=== PATIENT | female | born 1980 | race Caucasian/White ===

== ENCOUNTER 2021-12-29 12:43 | Outpatient (CLI) | payer MEDICAID, SELFPAY ==
--- NOTE | 2021-12-29 12:57 | MR_ITS ---
WS: [id number] MRI LUMBAR SPINE NONCONTRAST TECHNIQUE: Sagittal T1, T2 and STIR imaging. Axial T1 and T2 imaging. CLINICAL INFORMATION: RADICULOPATHY COMPARISON: None. FINDINGS: Counting performed from the craniocervical junction. S1 is partially lumbarized. Thoracolumbar S-shaped scoliosis. Thoracic scoliosis convex RIGHT and lumbar curve convex LEFT. L1-L2: Mild annular bulging. Slight narrowing of the RIGHT subarticular recess. Spinal canal and fora men are patent. Mild facet arthropathy. L2-L3: Mild disc bulging with osteophytic ridging. Slight narrowing of the RIGHT subarticular recess. Spinal canal and foramen are patent. Mild facet arthropathy. L3-L4: Mild annular bulging. Moderate facet arthropathy. Mild RIGHT and no significant LEFT foraminal narrowing. L4-L5: Slight anterolisthesis. Mild annular bulging. Mild facet arthropathy. Mild to moderate bilater al foraminal narrowing. Mild facet arthropathy. Spinal canal is patent. L5-S1: Grade 1 anterolisthesis L5 on S1. Mild central canal stenosis with impingement on the traversi ng S1 nerve roots bilaterally. Moderate facet arthropathy. Impingement on the traversing LEFT greater than RIGHT S1 nerve roots. Moderate LEFT and mild RIGHT foraminal narrowing. Mild facet arthropathy. S1 is partially lumbarized. Rudimentary disc space at S1-S2 with moderate LEFT foraminal narrowing. Visualized pelvic bony structures: Normal. Paravertebral soft tissues: Normal. MR/MR lumbar spine wo con* [id number] IMPRESSION: 1. S-shaped thoracolumbar scoliosis. No acute compression. Grade 1 anterolisth esis L5 on S1. 2. Mild central canal stenosis L5-S1 with impingement on the traversing LEFT g reater than RIGHT S1 nerve roots. 3. Moderate LEFT L5-S1 foraminal narrowing impinges the exiting LEFT L5 nerve root. Mild RIGHT L3-L4 foraminal narrowing. 4. Mild to moderate bilateral L4-L5 foraminal narrowing. 5. Moderate facet arthropathy L3-L5. 6. Rudimentary disc space at S1-S2 with moderate RIGHT foraminal narrowing. S1 is partially lumbarized.
== END 2021-12-29 12:44 | disposition home or self-care (01) ==
LOC: RAD 12:44
PROVIDERS: Visit Provider Anesthesiology Pain Medicine
DX: M54.16 Radiculopathy, lumbar region (principal); M48.07 Spinal stenosis, lumbosacral region
CPT/HCPCS: 72148

== ENCOUNTER → 2022-03-07 12:43 | Outpatient (BNVA) | payer MEDICAID, SELFPAY | PROVIDERS: Visit Provider Internal Medicine Cardiovascular Disease | DX: I48.91 Unspecified atrial fibrillation (principal); J44.9 Chronic obstructive pulmonary disease, unspecified; K21.9 Gastro-esophageal reflux disease without esophagitis; F41.9 Anxiety disorder, unspecified; F17.210 Nicotine dependence, cigarettes, uncomplicated; I45.10 Unspecified right bundle-branch block | CPT/HCPCS: 99204 ==

== ENCOUNTER 2022-04-28 09:09 | Outpatient (CLI) | payer MEDICAID, SELFPAY ==
--- NOTE | 2022-04-28 09:25 | MR_ITS ---
WS: [id number] MRI LEFT KNEE NONCONTRAST TECHNIQUE: Axial PD, coronal PD fat sat, coronal PD, sagittal PD, and sagittal PD fat-sat images obta ined. CLINICAL INFORMATION: PRIMARY OSTEOARTHRITIS L KNEE COMPARISON: None. FINDINGS: Distal quadriceps and patella tendons are intact. Hypertrophic patella. Advanced tricompartmental art hritis. Normal ACL and PCL. [id number] articulation in the lateral joint compartment with subchondr al edema in the lateral tibial plateau. Subchondral cystic change lateral tibial plateau. Subchondra l cystic change along the tibial spines. Advanced chondromalacia patella. Medial and lateral patellar retinacula intact. Ganglion cyst along t he dorsal PCL measuring 1.9 x 1.1 CM. Chronic thinning of the medial and lateral meniscus. Complex te ars of the posterior horn lateral meniscus extending to the articular surface. Tiny tear involving th e anterior horn lateral meniscus. Chronic tear of the body of the lateral meniscus. MR/MR knee LT wo con* [id number] IMPRESSION: 1. Advanced tricompartmental arthritis with hypertrophic changes along the joanna nt line. [id number] articulation lateral joint compartment with subchondral e avni and subchondral cystic change in the lateral tibial plateau. 2. Normal ACL and PCL. 3. Hypertrophic patella with advanced chondromalacia patella with small amount of subchondral edema. 4. Chronic thinning of the medial and lateral meniscus. Complex tear of the la teral meniscus likely chronic. 5. Ganglion cyst along the PCL measuring 1.1 x 1.9 cm. 6. Medial and lateral collateral ligaments are intact. Outbridge grading: grade IV: full-thickness cartilage loss with underlying bone reactive changes
== END 2022-04-28 09:10 | disposition home or self-care (01) ==
LOC: RAD 09:10
PROVIDERS: PCP Nurse Practitioner Family; Visit Provider Anesthesiology
DX: M17.12 Unilateral primary osteoarthritis, left knee (principal); S83.272A Complex tear of lateral meniscus, current injury, left knee, initial encounter; X58.XXXA Exposure to other specified factors, initial encounter; M67.462 Ganglion, left knee
CPT/HCPCS: 73721

== ENCOUNTER 2022-05-10 10:40 | Outpatient (CLI) | payer MEDICAID, SELFPAY ==
--- NOTE | 2022-05-10 11:00 | USCV_ITS ---
Fatuma Starkey Age: 41 Gender: F : 1980 Exam Date: 05/10/2022 11:09 Ordering Phys: Lidia Tatum MD ([email or web address]) Technologist: Rj Bradshaw [place] [facility] [place] H/O SVT, H/O A fib BP: 128 / 84 HR: 70 Rhythm: Sinus Technical Quality: Adequate MEASUREMENTS (Male / Female) Normal Values 2D ECHO LV Diastolic Diameter PLAX 3.5 cm 4.2 - 5.9 / 3.9 - 5.3 cm LV Systolic Diameter PLAX 2.1 cm IVS Diastolic Thickness 0.9 cm 0.6 - 1.0 / 0.6 - 0.9 cm IVS Systolic Thickness 1.1 cm LVPW Diastolic Thickness 1.2 cm 0.6 - 1.0 / 0.6 - 0.9 cm LVPW Systolic Thickness 1.2 cm LV Ejection Fraction 2D Teich 71.7 % LV Ejection Fraction MOD 2C 62.4 % LV Ejection Fraction 2C AL 61.3 % LA Diameter 3.0 cm LA Width 3.7 cm LA Height 4.0 cm RA Width 3.1 cm RA Height 3.4 cm Aorta at Sinotubular Diameter 2.1 cm IVC Diameter 1.7 cm M-MODE Aortic Annulus Diameter 2.8 cm LA Ao Ratio MM 1.1 MV E Point Septal Separation 0.5 cm DOPPLER AV Peak Velocity 133.8 cm/s LVOT Peak Velocity 98.0 cm/s MV Peak Velocity 120.0 cm/s MV Area PHT 4.6 cm squared Mitral E to A Ratio 1.2 MV E' Velocity 44.0 cm/s Mitral E to MV E' Ratio 6.5 Mitral E to LV E' Lateral Ratio 6.8 Mitral E to LV E' Septal Ratio 6.2 TR Peak Velocity 227.5 cm/s TR Peak Gradient 20.7 mmHg TR Mean Velocity 185.8 cm/s TR Mean Gradient 14.2 mmHg TR Velocity Time Integral 62.0 cm Right Atrial Pressure 3.0 mmHg Pulmonary Artery Systolic Pressu 23.7 mmHg PV Peak Velocity 109.0 cm/s RV Acceleration Time 0.2 s RV Ejection Time 0.3 s RV AcT/ET 0.6 FINDINGS Left Ventricle Left ventricle is normal in size. LV systolic function is normal with EF of 55 to 60%. No regional wall motion abnormalities are seen. Diastolic function is normal Right Ventricle Normal in size and function Right Atrium Normal in size Left Atrium Normal in size Mitral Valve Structurally normal mitral valve. Trace mitral regurgitation. Aortic Valve Structurally normal aortic valve. No significant stenosis or regurgitation. Tricuspid Valve Mild tricuspid regurgitation. Insufficient TR jet to evaluate RVSP. Pulmonic Valve Not well-visualized Pericardium Normal Aorta Normal in size IVC Appears to be normal CONCLUSIONS LV systolic function is normal with EF of 55 to 60% Diastolic function is normal Trace mitral regurgitation Mild tricuspid regurgitation No comparison studies are available Ralph Horowitz MD (Electronically Signed) Final Date: 15 May 2022 14:07 S
== END 2022-05-10 10:41 | disposition home or self-care (01) ==
LOC: RAD 10:41
PROVIDERS: PCP Nurse Practitioner Family; Visit Provider Internal Medicine Cardiovascular Disease
DX: I48.91 Unspecified atrial fibrillation (principal); I08.1 Rheumatic disorders of both mitral and tricuspid valves
CPT/HCPCS: 93306

== ENCOUNTER → 2022-11-16 14:50 | Outpatient (BNVA) | payer MEDICAID, SELFPAY | PROVIDERS: PCP Nurse Practitioner Family; Visit Provider Specialist | DX: M17.12 Unilateral primary osteoarthritis, left knee (principal); M25.561 Pain in right knee; G89.29 Other chronic pain | CPT/HCPCS: 73560; 73565; 99204 ==

== ENCOUNTER 2023-03-29 08:45 | Emergency (ER) | payer MEDICAID, SELFPAY ==
[2023-03-29 08:52] VITALS: BP 156/97; PULSE 55; RESP 18; TEMP 36.8; O2SAT 98; BMI 36.1
[2023-03-29 09:06] VITALS: BP 156/97; PULSE 60; PULSE 63; RESP 17; O2SAT 98
--- NOTE | 2023-03-29 09:16 | XRR_ITS ---
PROCEDURE INFORMATION: Exam: XR Left Knee Exam date and time: 03/29/2023 9:35 AM Age: 42 years old Clinical indication: Pain; Knee; Left TECHNIQUE: Imaging protocol: Radiologic exam of the left knee. Views: 3 views. COMPARISON: 1. CR XR knees AP WB w LT lmt ORTH 11/16/2022 2:51 PM 2. MR knee LT wo con* [id number] 04/28/2022 9:38 AM FINDINGS: Bones/joints: No acute fracture or dislocation. Mineralization is normal. Mild to moderate tricompartmental joint space narrowing and marginal osteophyte formation. Small joint effusion. Soft tissues: Unremarkable. XR/XR knee LT 3V* [id number] IMPRESSION: 1. Joint effusion without acute fracture or dislocation. 2. Mild to moderate tricompartmental osteoarthritis.
--- NOTE | 2023-03-29 09:16 | W.ED.EXTPRO ---
HPI - Extremity Problem General: Chief complaint: Extremity Problem,Nontraumatic Stated complaint: left knee swollen/pain Time Seen by Provider: 03/29/23 09:06 Source: patient Mode of arrival: wheelchair Limitations: no limitations History of Present Illness: Patient is a 42-year-old female presents to ED today with a complaint of left knee pain. Patient states she has had pain in that knee for over 2 years. Patient was seen by Dr. Scanlon in October of this year in regards to the knee. She had XRs performed while there. Dr. Scanlon's interpretation of the knee XR is below: X-rays were obtained here at the office today, and these were personally interpreted by me.? X-ray series includes bilateral AP weightbearing films of the knees as well as isolated lateral and sunrise view of the patient's left knee.? Bilateral AP weightbearing films demonstrate the right knee is relatively normal with slight joint space narrowing.? The left knee demonstrates diffuse degenerative changes with osteophytes medially and laterally on the tibial plateau.? The lateral of the left knee demonstrates osteophyte superiorly and inferiorly on the patella and significant irregularity of the trochlear groove.? The sunrise view demonstrates osteophytes medially and laterally on the patellofemoral joint including both the trochlear and patellar sides with significant joint space narrowing. Patient also has underwent MRI of the knee as well. According to orthopedic documentation results are below: MRI of the left knee noncontrast was obtained at [facility] on April 28, 2022.? This was interpreted by Dr. Sumanth Hernandez.? Findings on this MRI included advanced tricompartmental osteoarthritis with hypertrophic changes along the joint line.? There was [id number] articulation in the lateral compartment with subchondral edema in the lateral tibial plateau.? Anterior and posterior cruciate ligaments were noted to be normal.? The patella was noted to be hypertrophic with advanced chondromalacia and a small amount of subchondral edema.? There was chronic thinning of the medial and lateral meniscus with a complex tear of the lateral meniscus felt to be chronic there was also a ganglion cyst along the PCL measuring 1.1 x 1.9 cm.? Medial and lateral collateral ligaments as well as distal quadriceps and patellar tendons were noted to be intact. Per patient account and Dr. Scanlon's note she was referred to [facility] for further evaluation but patient states she has never heard from them and has never followed up with them. Patient states she takes hydrocodone daily from her pain management provider as well as Celebrex and these are not helping with her discomfort. MD Complaint: joint pain Onset (ago): year(s) Pain Consistency: constant Location: left and knee Radiation: none Relieving factors: nothing Exacerbating factors: weight bearing and walking Associated symptoms: Reports no associated symptoms; Deny chest pain Review of Systems Card: Denies: chest pain Resp: Denies: dyspnea Musc: Reports: joint pain (L knee) and joint swelling (L knee); Denies: neck pain, back pain, extremity pain, extremity swelling, joint redness or joint warmth Neuro: Denies: numbness in extremities or sensory changes PFSH ED PFSH: Medical History Anemia Anxiety COPD (chronic obstructive pulmonary disease) GERD (gastroesophageal reflux disease) History of atrial fibrillation Surgical History S/P section S/P hernia repair S/P T&A (status post tonsillectomy and adenoidectomy) Family History Father Myocardial infarction CHF (congestive heart failure) Hypertension Mother Stroke Hypertension Social History Smoking and tobacco status: current every day smoker cigarettes Packs smoked per day: 1.5 Years cigarettes smoked: 20 Physical Exam Const: COMMON NORMALS: no acute distress, patient oriented x3, no limitations, healthy appearing, alert and well nourished Extremity: COMMON NORMALS: capillary refill normal, no clubbing, cyanosis or edema, no calf tenderness and no pedal edema GENERAL: Yes normal exam except as noted LEFT LOWER EXTREMITY: Yes knee joint (arthritic appearing L knee with chronic swelling) Left knee: Yes ROM (reporting limited ROM secondary to pain), Yes neurovascular exam (normal) and Yes other (no joint laxity noted) Neuro: COMMON NORMALS: patient oriented x3, moves all extremities, no focal motor deficits and no sensory deficits noted SENSORIUM/ORIENTATION: Yes alert Skin: COMMON NORMALS: no rashes or lesions noted GENERAL SKIN EXAM: no rashes or lesions noted TRAUMA: no lacerations or abrasions Course Vital Signs: Vital signs: Vital Signs Temperature 98.2 F 03/29/23 08:52 Pulse Rate 60 03/29/23 09:06 Respiratory Rate 17 03/29/23 09:06 Blood Pressure 156/97 03/29/23 09:06 Pulse Oximetry 98 03/29/23 09:06 Oxygen Delivery Me thod Room Air 03/29/23 09:06 MDM - Extremity (Nontraumatic) Medical Decision Making Patient here with chronic left knee pain. She does have fairly extensive degenerative changes in the knee seen on MRI imaging a year or so ago. She reportedly has been referred to [facility] but for what ever reason was never scheduled an appointment. Recommend she reach out to [facility] orthopedics to see if they can place another referral for further follow-up. She already takes Hydrocodone and Celebrex daily. We will add some steroids. She is requesting a cane to help offload some weight. HOME will be bringing her one of these prior to discharge. XR interpretation done by ED provider, pending radiology final review Discharge Plan Discharge Patient Disposition: Home Clinical Impression: Tricompartment osteoarthritis of left knee Condition: Stable Prescriptions: New Medrol (Masoud) 4 mg tablets,dose pack See Rx Instructions .ROUTE .COMPLEX Qty: 21 0RF Rx Instructions: orally per package directions No Action albuterol sulfate [ProAir HFA] 90 mcg/actuation HFA aerosol inhaler 2 puff inhalation Q6H PRN tizanidine 4 mg tablet 4 mg PO TID PRN buspirone 30 mg tablet 30 mg PO BID cetirizine 10 mg tablet 10 mg PO DAILY pantoprazole 40 mg tablet,delayed release (DR/EC) 40 mg PO DAILY famotidine 20 mg tablet 20 mg PO BID atenolol 25 mg tablet 25 mg PO DAILY celecoxib 100 mg capsule 100 mg PO BID sennosides [senna] 8.6 mg tablet 8.6 mg PO DAILY PRN Anoro Ellipta 62.5-25 mcg/actuation blister with device 1 inh inhalation Q24H propafenone 150 mg tablet 150 mg PO BID Qty: 60 6RF Discharge Orders: Discharge ED (Routine); Ordered 03/29/23 Ordered By: Macy Bustillo Referrals: Negrita Howard FNP [Primary Care Provider] - Activity Restrictions/Additional Instructions: As we discussed you may try to contact [facility] orthopedics to see if they can place another follow-up appointment to [facility] for further evaluation of your knee pain. Coding Level of Care Code ED Mechanic Insulator for Renzo Rao
[2023-03-29] MEDS: dexamethasone 10 mg/mL INJ 8 MG IM (09:29)
--- NOTE | 2023-03-29 11:01 | PC.SOCIAL ---
JEREMIE Singh Pre-Cert number assigned: [id number] Faxed to HOME.
== END 2023-03-29 10:59 | disposition home or self-care (01) ==
PROVIDERS: Emergency Provider Physician Assistant; PCP Nurse Practitioner Family
DX: M17.12 Unilateral primary osteoarthritis, left knee (principal); J44.9 Chronic obstructive pulmonary disease, unspecified; F17.210 Nicotine dependence, cigarettes, uncomplicated
CPT/HCPCS: 73562; 96372; 99284; J1100

== ENCOUNTER → 2023-04-07 09:50 | Outpatient (BNVA) | payer MEDICAID, SELFPAY | PROVIDERS: PCP Nurse Practitioner Family; Visit Provider Internal Medicine Cardiovascular Disease | DX: I48.91 Unspecified atrial fibrillation (principal); K21.9 Gastro-esophageal reflux disease without esophagitis; I10 Essential (primary) hypertension; J44.9 Chronic obstructive pulmonary disease, unspecified; F41.9 Anxiety disorder, unspecified; F17.210 Nicotine dependence, cigarettes, uncomplicated | CPT/HCPCS: 36415; 80053; 80061; 84443; 85025; 99214 ==

== ENCOUNTER → 2023-07-22 13:13 | Outpatient (BNVA) | payer MEDICAID, SELFPAY | PROVIDERS: PCP Nurse Practitioner Family; Visit Provider Emergency Medicine | DX: R05.9 Cough, unspecified (principal); J06.9 Acute upper respiratory infection, unspecified; J44.1 Chronic obstructive pulmonary disease with (acute) exacerbation | CPT/HCPCS: 87400; 87426 ==

== ENCOUNTER 2024-11-22 09:01 | Outpatient (CLI) | payer MEDICAID, SELFPAY ==
--- NOTE | 2024-11-22 09:08 | US_ITS ---
WS: [id number] ULTRASOUND BLADDER CLINICAL INFORMATION: IMCOMPLETE BLADDER EMPTYING COMPARISON: None. FINDINGS: Urinary bladder: The urinary bladder is morphologically normal. No free fluid is seen in the pelvis. Bladder volume Prevoid bladder: 10.9 cm x 10.1 cm x 8.6 cm; estimated volume 490.7 ml. Postvoid bladder: 3.1 cm x 4.5 cm x 4.7 cm; estimated volume 33.5 ml. US/US bladder [id number] IMPRESSION: Prevoid bladder volume 490 cc Post void bladder volume 33 cc
== END 2024-11-22 09:02 | disposition home or self-care (01) ==
LOC: RAD 09:01
PROVIDERS: PCP Nurse Practitioner Family; Visit Provider Family Medicine
DX: R39.14 Feeling of incomplete bladder emptying (principal)
CPT/HCPCS: 76857

== ENCOUNTER 2025-01-09 11:28 | Outpatient (CLI) | payer MEDICAID, SELFPAY ==
--- NOTE | 2025-01-09 11:40 | MM_ITS ---
WS: [id number] BILATERAL SCREENING DIGITAL TOMOSYNTHESIS MAMMOGRAM WITH CAD HISTORY: SCREENING COMPARISON: None available. Bilateral CC and MLO views with tomosynthesis and synthetic mammography submitted. Computer aided detection analyzed. Breast composition: The breasts are extremely dense, which lowers the sensitivity of mammography. No suspicious masses, microcalcifications or architectural distortion. Coarse calcifications in each breast. No suspicious cluster of calcifications. No distortion. MM/MM scr BI tomosynthesis [id number] IMPRESSION: BI-RADS: 2 - Benign FOLLOW UP: 1 Year Follow-up
== END 2025-01-09 11:29 | disposition home or self-care (01) ==
PROVIDERS: PCP Family Medicine; Visit Provider Family Medicine
DX: Z12.31 Encounter for screening mammogram for malignant neoplasm of breast (principal); R92.343 Mammographic extreme density, bilateral breasts; R92.1 Mammographic calcification found on diagnostic imaging of breast
CPT/HCPCS: 77063; 77067

== ENCOUNTER 2025-02-14 08:11 | Outpatient (CLI) | payer MEDICAID, SELFPAY ==
--- NOTE | 2025-02-14 08:20 | US_ITS ---
WS: [id number] Complete ABDOMINAL ULTRASOUND HISTORY: DIARRHEA/ABDOMINAL PAIN COMPARISON: None available. Liver: 15.0 cm in length. Normal size liver and echogenicity. No bile duct dilatation or mass. Portal Vein: Normal hepatopetal flow with monophasic waveform. Gallbladder: Normally distended gallbladder with no stones or wall thickening. CBD: 0.3 cm Pancreas: Normal size and echogenicity. Right kidney: 10.7 cm x 6.0 x 4.8 cm. Cortex:1.3 cm. Normal size and echogenicity. No hydronephrosis or mass. Left kidney: 10.2 cm x 4.7 cm x 5.8 cm. Cortex: 1.6 cm. Normal size and echogenicity. No hydronephrosis or mass. Spleen: 7.5 cm. Normal size and echogenicity. Aorta and IVC: Unremarkable abdominal aorta and IVC. US/US abdomen complete* [id number] Impression: Normal complete abdomen ultrasound.
== END 2025-02-14 08:12 | disposition home or self-care (01) ==
LOC: RAD 08:13
PROVIDERS: PCP Family Medicine; Visit Provider Family Medicine
DX: R19.7 Diarrhea, unspecified (principal); R10.9 Unspecified abdominal pain
CPT/HCPCS: 76700

== ENCOUNTER 2025-03-20 11:18 | Outpatient (CLI) | payer MEDICAID, SELFPAY ==
--- NOTE | 2025-03-20 11:23 | CTR_ITS ---
PROCEDURE INFORMATION: Exam: CT Abdomen And Pelvis With Contrast Exam date and time: 03/20/2025 12:49 PM Age: 44 years old Clinical indication: Abdominal pain; Localized; Left upper quadrant (luq); Prior surgery; Surgery date: 6+ months; Surgery type: RT hip, hyst TECHNIQUE: Imaging protocol: Computed tomography of the abdomen and pelvis with contrast. Radiation optimization: All CT scans at this facility use at least one of these dose optimization techniques: automated exposure control; mA and/or kV adjustment per patient size (includes targeted exams where dose is matched to clinical indication); or iterative reconstruction. Contrast material: OMNI 350; Contrast volume: 100 ml; Contrast route: INTRAVENOUS (IV); COMPARISON: US abdomen complete* [id number] 02/14/2025 08:28 AM RADIATION DOSE METRICS: Total DLP (mGy-cm): 697.64 FINDINGS: Esophagus: Minimal oral contrast in the distal esophagus that could be related to reflux. Liver: Normal. No mass. Gallbladder and biliary ducts: Normal. No calcified stones. No ductal dilation. Pancreas: Normal. No ductal dilation. Spleen: Normal. No splenomegaly. Adrenal glands: Normal. No mass. Kidneys and ureters: Normal. No hydronephrosis. Stomach and bowel: Moderate stool in the sigmoid and transverse colon. Partially food filled stomach. Appendix: No evidence of appendicitis. Intraperitoneal space: Unremarkable. No free air. No significant fluid collection. Vasculature: Unremarkable. No abdominal aortic aneurysm. Lymph nodes: Unremarkable. No enlarged lymph nodes. Urinary bladder: Unremarkable as visualized. Reproductive: Unremarkable as visualized. Bones/joints: Right hip prosthesis that results in beam hardening artifact that limits evaluation. Marked leftward convex lumbar curve with right lateral wedging defect of L1 and leftward wedging of L5. Multilevel facet arthropathy. Disc space narrowing at L1-L2, L4-L5 and L5-S1. Soft tissues: Unremarkable. Status post hysterectomy. CT/CT abdomen pelvis w con* [id number] IMPRESSION: 1. Minimal oral contrast in the distal esophagus that could be related to reflux. 2. Marked leftward convex lumbar curve with right lateral wedging defect of L1 and leftward wedging of L5. 3. Disc space narrowing at L1-L2, L4-L5 and L5-S1.
[2025-03-20] MEDS: iohexol 350 mg/mL 500 mL Btl (per mL) PO (12:50)
[2025-03-20] MEDS: iohexol 350 mg/mL 500 mL Btl (per mL) IV (12:53)
== END 2025-03-20 11:19 | disposition home or self-care (01) ==
LOC: RAD 11:19
PROVIDERS: PCP Family Medicine; Visit Provider Family Medicine
DX: R10.12 Left upper quadrant pain (principal); Z90.710 Acquired absence of both cervix and uterus; M47.816 Spondylosis without myelopathy or radiculopathy, lumbar region
CPT/HCPCS: 74177